=== PATIENT | male | born 1940 | race Caucasian/White ===

== ENCOUNTER 2020-02-03 18:17 | Emergency (ER) | payer MEDICARE, OTHER ==
[2020-02-03] MEDS ORDERED: Sodium Chloride 0.9% 10 ML Syringe FLUSH PRN (19:05)
--- NOTE | 2020-02-03 19:16 | EDM.PDOC ---
ED HPI GENERAL MEDICAL PROBLEM - General Chief Complaint: Neurological Problem Stated Complaint: DIZZY NO BALANCE Time Seen by Provider: 02/03/20 18:55 Source of Information: Reports: Patient, RN Notes Reviewed History Limitations: Reports: No Limitations - History of Present Illness INITIAL COMMENTS - FREE TEXT/NARRATIVE: Patient is an 79-year-old male who presents to the ED for the evaluation of his dizziness. Patient notes he has had dizziness, which he would characterize as lightheadedness for the past few days, but has noted it is gotten much worse. He has not had any nausea/vomiting/diarrhea, or any cough, chest pain or shortness of breath. He is complaining of balance issues at home. He notes that he has had issues like this once before roughly 5 or 6 weeks ago, and he was evaluated by his care provider Dr. Mallory had an MRI and a neurologist referral, and everything was okay. The neurologist thought maybe he should go see his hazardous waste management specialist again regarding his valve repair he had a few years ago. Patient states that this dizziness hit him very suddenly, and any movement at all seems to make this worse. He is not noted anything that really makes it better. Temperature at time of triage was 100.2 F, O2 sats are 95% on room air, pulse is 84 bpm, respiratory rate of 19, blood pressure is 136/105. He notes he does not take any regular medications other than [id number] meds and multivitamins. - Related Data Allergies Allergy/AdvReac Type Severity Reaction Status Date / Time No Known Allergies Allergy Verified 02/03/20 18:40 Home Meds: Home Meds Multivitamin 1 tab PO DAILY 02/03/20 [History] Mv-Mn/Iron/Folic Acid/Herb 190 [Vitamin D3 Complete Caplet] 1 cap PO DAILY 02/03/20 [History] Vit A/C/E AC/Znox/Cupric Oxide [Eye Vitamin-Minerals Tablet] 1 tab PO DAILY 02/03/20 [History] Zinc 50 mg PO DAILY 02/03/20 [History] Past Medical History HEENT History: Reports: Macular Degeneration Cardiovascular History: Reports: Other (See Below) (heart valve repair done at [facility]) Oncologic (Cancer) History: Reports: Malignant Melanoma - Infectious Disease History Infectious Disease History: Reports: Chicken Pox, Measles, Mumps - Past Surgical History Cardiovascular Surgical History: Reports: Other (See Below) (valve repair done at [facility]) Social & Family History - Family History Family Medical History: No Pertinent Family History - Tobacco Use Tobacco Use Status *Q: Former Tobacco User Used Tobacco, but Quit: Yes Month/Year Tobacco Last Used: 1969 - Caffeine Use Caffeine Use: Reports: Coffee - Recreational Drug Use Recreational Drug Use: No ED ROS GENERAL - Review of Systems Review Of Systems: Comprehensive ROS is negative, except as noted in HPI. ED EXAM, GENERAL - Physical Exam Exam: See Below Exam Limited By: No Limitations General Appearance: Alert, WD/WN, No Apparent Distress Eye Exam: Bilateral Eye: EOMI, Normal Inspection, PERRL Ears: Normal External Exam, Normal TMs Throat/Mouth: Normal Inspection, Normal Lips, Normal Teeth, Normal Gums, Normal Oropharynx, Normal Voice, No Airway Compromise Head: Atraumatic, Normocephalic Neck: Normal Inspection Respiratory/Chest: No Respiratory Distress, Lungs Clear, Normal Breath Sounds, No Accessory Muscle Use, Chest Non-Tender Cardiovascular: Normal Peripheral Pulses, Regular Rate, Rhythm, No Murmur GI/Abdominal: Normal Bowel Sounds, Soft, Non-Tender, No Distention, No Mass Extremities: Normal Inspection, Normal Capillary Refill Neurological: Alert, Oriented, Normal Cognition, No Motor/Sensory Deficits Psychiatric: Normal Affect, Normal Mood Skin Exam: Warm, Dry, Intact, Normal Color, No Rash #1 Interpretation EKG Date: 02/03/20 Time: 19:18 Rhythm: NSR Rate (Beats/Min): 73 [place]: Normal P-Wave: Present QRS: Normal ST-T: Normal QT: Normal Comparison: NA - No Prior EKG EKG Interpretation Comments: No obvious ischemia or acute ST changes noted, reviewed by myself and Dr. Johnson. He did appreciate some old Q waves, but again nothing acute. Course - Vital Signs Last Recorded V/S: Last Vital Signs Temp 101.2 F H 02/03/20 19:29 Pulse 84 02/03/20 18:36 Resp 19 02/03/20 18:36 BP 136/105 H 02/03/20 18:36 Pulse Ox 95 02/03/20 18:36 Orthostatic Blood Pressure [ 119/75 Standing] Orthostatic Blood Pressure [ 121/75 Supine] - Orders/Labs/Meds Orders: Active Orders 24 hr Category Date Time Status EKG Documentation Completion [RC] STAT Care 02/03/20 19:04 Active Orthostatic Vital Signs [RC] ASDIRECTED Care 02/03/20 19:11 Active Peripheral IV Care [RC] . DIRECTED Care 02/03/20 19:06 Active Chest 1V Frontal [CR] Stat Exams 02/03/20 19:02 Taken Ciprofloxacin [Ciloxan 0.3% Ophth Soln] Med 02/03/20 21:45 Ordered 1 ml EYEBOTH Q4H Sodium Chloride 0.9% [Saline Flush] Med 02/03/20 19:05 Active 10 ml FLUSH ASDIRECTED PRN Isolation [COMM] Routine Oth 02/03/20 19:04 Ordered Peripheral IV Insertion Adult [OM.PC] Routine Oth 02/03/20 19:06 Ordered Medication Orders Sodium Chloride (Saline Flush) 10 ml FLUSH ASDIRECTED PRN PRN Reason: Keep Vein Open Last Admin: 02/03/20 19:30 Dose: 10 ml Documented by: SEAN Labs: Laboratory Tests 02/03/20 02/03/20 02/03/20 Range/Units 19:20 19:20 19:20 WBC 10.23 H (4.23-9.07) K/mm3 RBC 4.61 L (4.63-6.08) M/mm3 Hgb 14.8 (13.7-17.5) gm/dl Hct 43.5 (40.1-51.0) % MCV 94.4 H (79.0-92.2) fl MCH 32.1 (25.7-32.2) pg MCHC 34.0 (32.2-35.5) g/dl RDW Std Deviation 45.1 H (35.1-43.9) fL Plt Count 207 (163-337) K/mm3 MPV 9.2 L (9.4-12.3) fl Neutrophils % (Manual) 83 H (40-60) % Band Neutrophils % 0 (0-10) % Lymphocytes % (Manual) 14 L (20-40) % Atypical Lymphs % 0 % Monocytes % (Manual) 2 (2-10) % Eosinophils % (Manual) 1 (0.8-7.0) % Basophils % (Manual) 0 L (0.2-1.2) Platelet Estimate Adequate Plt Morphology Comment Normal RBC Morph Comment Normal PT 11.1 (9.7-12.0) SECONDS INR 1.04 APTT 27.5 (21.7-31.4) SECONDS D-Dimer, Quantitative 0.70 H (0.19-0.50) mg/L Sodium (136-145) mEq/L Potassium (3.5-5.1) mEq/L Chloride (98-107) mEq/L Carbon Dioxide (21-32) mEq/L Anion Gap (5-15) BUN (7-18) mg/dL Creatinine (0.7-1.3) mg/dL Est Cr Clr Drug Dosing mL/min Estimated GFR (MDRD) (>60) mL/min BUN/Creatinine Ratio (14-18) Glucose (83-115) mg/dL Calcium (8.5-10.1) mg/dL Magnesium (1.8-2.4) mg/dl Ferritin (26-388) ng/ml Total Bilirubin (0.2-1.0) mg/dL AST (15-37) U/L ALT (16-63) U/L Alkaline Phosphatase (46-116) U/L Troponin I (0.00-0.056) ng/mL C-Reactive Protein 6.4 H* (<1.0) mg/dL NT-Pro-B Natriuret Pep (0-450) pg/mL Total Protein (6.4-8.2) g/dl Albumin (3.4-5.0) g/dl Globulin gm/dL Albumin/Globulin Ratio (1-2) Urine Color (Yellow) Urine Appearance (Clear) Urine pH (5.0-8.0) Ur Specific Spencer (1.005-1.030) Urine Protein (Negative) Urine Glucose (UA) (Negative) Urine Ketones (Negative) Urine Occult Blood (Negative) Urine Nitrite (Negative) Urine Bilirubin (Negative) Urine Urobilinogen (0.2-1.0) Ur Leukocyte Esterase (Negative) Urine RBC (0-5) /hpf Urine WBC (0-5) /hpf Ur Squamous Epith Cells (0-5) /hpf Urine Bacteria (FEW) /hpf Urine Mucus (FEW) /hpf Influenza Type A RNA (NEGATIVE) Influenza Type B RNA (NEGATIVE) Mycoplasma pneumon IgM (NEGATIVE) SARS-CoV-2 RNA (SHEELA) (NEGATIVE) 02/03/20 02/03/20 02/03/20 Range/Units 19:20 19:20 19:20 WBC (4.23-9.07) K/mm3 RBC (4.63-6.08) M/mm3 Hgb (13.7-17.5) gm/dl Hct (40.1-51.0) % MCV (79.0-92.2) fl MCH (25.7-32.2) pg MCHC (32.2-35.5) g/dl RDW Std Deviation (35.1-43.9) fL Plt Count (163-337) K/mm3 MPV (9.4-12.3) fl Neutrophils % (Manual) (40-60) % Band Neutrophils % (0-10) % Lymphocytes % (Manual) (20-40) % Atypical Lymphs % % Monocytes % (Manual) (2-10) % Eosinophils % (Manual) (0.8-7.0) % Basophils % (Manual) (0.2-1.2) Platelet Estimate Plt Morphology Comment RBC Morph Comment PT (9.7-12.0) SECONDS INR APTT (21.7-31.4) SECONDS D-Dimer, Quantitative (0.19-0.50) mg/L Sodium 140 (136-145) mEq/L Potassium 4.1 (3.5-5.1) mEq/L Chloride 102 (98-107) mEq/L Carbon Dioxide 27 (21-32) mEq/L Anion Gap 15.1 H (5-15) BUN 27 H (7-18) mg/dL Creatinine 0.9 (0.7-1.3) mg/dL Est Cr Clr Drug Dosing 67.59 mL/min Estimated GFR (MDRD) > 60 (>60) mL/min BUN/Creatinine Ratio 30.0 H (14-18) Glucose 96 (83-115) mg/dL Calcium 8.8 (8.5-10.1) mg/dL Magnesium 2.0 (1.8-2.4) mg/dl Ferritin 442 H (26-388) ng/ml Total Bilirubin 0.6 (0.2-1.0) mg/dL AST 16 (15-37) U/L ALT 29 (16-63) U/L Alkaline Phosphatase 65 (46-116) U/L Troponin I < 0.017 (0.00-0.056) ng/mL C-Reactive Protein (<1.0) mg/dL NT-Pro-B Natriuret Pep 265 (0-450) pg/mL Total Protein 7.5 (6.4-8.2) g/dl Albumin 3.5 (3.4-5.0) g/dl Globulin 4.0 gm/dL Albumin/Globulin Ratio 0.9 L (1-2) Urine Color (Yellow) Urine Appearance (Clear) Urine pH (5.0-8.0) Ur Specific Spencer (1.005-1.030) Urine Protein (Negative) Urine Glucose (UA) (Negative) Urine Ketones (Negative) Urine Occult Blood (Negative) Urine Nitrite (Negative) Urine Bilirubin (Negative) Urine Urobilinogen (0.2-1.0) Ur Leukocyte Esterase (Negative) Urine RBC (0-5) /hpf Urine WBC (0-5) /hpf Ur Squamous Epith Cells (0-5) /hpf Urine Bacteria (FEW) /hpf Urine Mucus (FEW) /hpf Influenza Type A RNA (NEGATIVE) Influenza Type B RNA (NEGATIVE) Mycoplasma pneumon IgM (NEGATIVE) SARS-CoV-2 RNA (SHEELA) (NEGATIVE) 02/03/20 02/03/20 02/03/20 Range/Units 19:20 19:20 19:52 WBC (4.23-9.07) K/mm3 RBC (4.63-6.08) M/mm3 Hgb (13.7-17.5) gm/dl Hct (40.1-51.0) % MCV (79.0-92.2) fl MCH (25.7-32.2) pg MCHC (32.2-35.5) g/dl RDW Std Deviation (35.1-43.9) fL Plt Count (163-337) K/mm3 MPV (9.4-12.3) fl Neutrophils % (Manual) (40-60) % Band Neutrophils % (0-10) % Lymphocytes % (Manual) (20-40) % Atypical Lymphs % % Monocytes % (Manual) (2-10) % Eosinophils % (Manual) (0.8-7.0) % Basophils % (Manual) (0.2-1.2) Platelet Estimate Plt Morphology Comment RBC Morph Comment PT (9.7-12.0) SECONDS INR APTT (21.7-31.4) SECONDS D-Dimer, Quantitative (0.19-0.50) mg/L Sodium (136-145) mEq/L Potassium (3.5-5.1) mEq/L Chloride (98-107) mEq/L Carbon Dioxide (21-32) mEq/L Anion Gap (5-15) BUN (7-18) mg/dL Creatinine (0.7-1.3) mg/dL Est Cr Clr Drug Dosing mL/min Estimated GFR (MDRD) (>60) mL/min BUN/Creatinine Ratio (14-18) Glucose (83-115) mg/dL Calcium (8.5-10.1) mg/dL Magnesium (1.8-2.4) mg/dl Ferritin (26-388) ng/ml Total Bilirubin (0.2-1.0) mg/dL AST (15-37) U/L ALT (16-63) U/L Alkaline Phosphatase (46-116) U/L Troponin I (0.00-0.056) ng/mL C-Reactive Protein (<1.0) mg/dL NT-Pro-B Natriuret Pep (0-450) pg/mL Total Protein (6.4-8.2) g/dl Albumin (3.4-5.0) g/dl Globulin gm/dL Albumin/Globulin Ratio (1-2) Urine Color Dark yellow (Yellow) Urine Appearance Clear (Clear) Urine pH 6.5 (5.0-8.0) Ur Specific Spencer > or = 1.030 (1.005-1.030) Urine Protein 1+ H (Negative) Urine Glucose (UA) Negative (Negative) Urine Ketones Negative (Negative) Urine Occult Blood Negative (Negative) Urine Nitrite Negative (Negative) Urine Bilirubin Negative (Negative) Urine Urobilinogen 0.2 (0.2-1.0) Ur Leukocyte Esterase Negative (Negative) Urine RBC 0-5 (0-5) /hpf Urine WBC 0-5 (0-5) /hpf Ur Squamous Epith Cells 0-5 (0-5) /hpf Urine Bacteria Rare (FEW) /hpf Urine Mucus Few (FEW) /hpf Influenza Type A RNA Negative (NEGATIVE) Influenza Type B RNA Negative (NEGATIVE) Mycoplasma pneumon IgM Negative (NEGATIVE) SARS-CoV-2 RNA (SHEELA) Negative (NEGATIVE) Meds: Medications Generic Name Dose Route Start Last Admin Trade Name Freq PRN Reason Stop Dose Admin Sodium Chloride 10 ml 02/03/20 19:05 02/03/20 19:30 Saline Flush FLUSH 10 ml ASDIRECTED PRN Administration Keep Vein Open Discontinued Medications Generic Name Dose Route Start Last Admin Trade Name Freq PRN Reason Stop Dose Admin Acetaminophen 650 mg 02/03/20 19:24 02/03/20 19:29 Tylenol PO 02/03/20 19:25 650 mg NOW ONE Administration - Re-Assessments/Exams Free Text/Narrative Re-Assessment/Exam: 02/03/20 19:15 Patient presents to the ED for evaluation of his lightheadedness or dizziness. He is febrile at time of triage, does feel warm to the touch. We will get orthostatic VS, get an IV placed, obtain labs, chest x-ray, EKG, COVID-19 swab and influenza swab for evaluation along with a urinalysis. 02/03/20 20:21 The patient's laboratory evaluation has started to come back, CBC is impressive for mildly elevated white count at 10.23, the differential still pending at this time. D-dimer elevated at 0.70, ferritin mildly elevated elevated at 442, troponin is undetectably low, CRP is elevated at 6.4, urine is negative for any infection. Chest x-ray was read as no pneumonia, and linear atelectasis or scarring of the left lower lung. I did look at these x-rays, it does appear to have some fluid within a fissure on the right lung field, but there was an area concerning for possible patchy infiltrates near the right base. There is gas in his GI tract right below the hemidiaphragm that is elevated as well. 02/03/20 20:43 The patient's in-house Covid test, influenza swab are both negative. However his current symptoms would suggest an ongoing COVID-19 infection. He may just be having dizziness as his presenting symptom. We will get the patient home with general conservative recommendations, have him be a bit more cautious around the house, i.e. as in getting up and moving around, so that he does not get too lightheaded or dizzy and have a fall. We will have him go through the drive-through testing on Tuesday for a retest for COVID-19. 02/03/20 21:37 I did go and and discussed this with the patient, and he did state he has been having some issues with his ears being tender. Ear exam does demonstrate quite a bit of cerumen in both canals. We will have nursing staff clean his ears out before he is discharged home as this could be contributing to some of the dizziness issues. Departure - Departure Time of Disposition: 20:44 Disposition: Home, Self-Care 01 Condition: Good Clinical Impression: COVID-19 determined by clinical diagnostic criteria, Positional lightheadedness Bilateral external ear infections Qualifiers: Otitis externa type: unspecified type Chronicity: acute Qualified Code(s): H60.503 - Unspecified acute noninfective otitis externa, bilateral - Discharge Information *PRESCRIPTION DRUG MONITORING PROGRAM REVIEWED*: No *COPY OF PRESCRIPTION DRUG MONITORING REPORT IN PATIENT ERIKA: No Instructions: Dizziness, [id number], Otitis Externa, [id number] Referrals: Nehemiah Gibbons MD [Primary Care Provider] - Forms: ED Department Discharge Additional Instructions: You were seen in the ER today for your dizziness. Your chest x-ray showed no signs of pneumonia at this time. Your oxygen levels were great at 96% on room air. You did have a fever when you checked into the ER. Your in-house test did come back negative, but laboratory evaluation and symptoms would suggest that you have an ongoing COVID-19 infection. We ask that you self-quarantine and limit your exposure to others as much as possible. We do recommend that you go through the community drive-through testing, on Tuesday, and get another swab taken for retest for COVID-19. Testing site is located at [address] [place] [address] from 8am-11am on TuesdayFeb 04. Please try to increase your oral fluid intake, and eat multiple small meals throughout the day, to keep yourself healthy. You need to keep yourself nourished in order to fight off this disease. You can try a liquid diet like gatorade/powerade as well to get your electrolytes. You may take 500 mg Tylenol every hours 6 hours for pain/fever relief. Do not exceed 4000 mg Tylenol in a 24-hour time span. However, running a fever is your body's natural response to illness, and it allows the body to develop antibodies to disease, we are recommending trying to limit the use of Tylenol as much as possible to allow your body's natural immune response. Recommend you obtain a pulse oximeter and monitor your oxygen levels at home, you should place the monitor on your finger, and sit in a calm, quiet position for a few minutes and then record the number that is on the screen. If this consistently below 90% on room air without movement, this would be cause for concern to come back to the hospital for further management of your COVID-19 disease. Regarding your dizziness, please take it a little more cautious when you get up and or moving around, so that you do not become increasingly dizzy and fall. I would recommend you follow-up with your hazardous waste management specialist like your neurologist wanted you to, in regards to your heart valve repair, to make sure that this is indeed functioning well, and could not be an underlying cause of your issues. You were given a bottle of antibiotic eardrops, please use 4 drops to each ear BID x 7 days or until gone. Sepsis Event Note (ED) - Evaluation Sepsis Screening Result: No Definite Risk - Focused Exam Vital Signs: Vital Signs Temp Temp Pulse Resp BP Pulse Ox 02/03/20 19:29 101.2 F H 02/03/20 18:36 100.2 F 84 19 136/105 H 95 - My Orders Last 24 Hours: My Active Orders 02/03/20 19:02 Chest 1V Frontal [CR] Stat 02/03/20 19:04 EKG Documentation Completion [RC] STAT Isolation [COMM] Routine 02/03/20 19:05 Sodium Chloride 0.9% [Saline Flush] 10 ml FLUSH ASDIRECTED PRN 02/03/20 19:06 Peripheral IV Care [RC] . DIRECTED Peripheral IV Insertion Adult [OM.PC] Routine 02/03/20 19:11 Orthostatic Vital Signs [RC] ASDIRECTED 02/03/20 21:45 Ciprofloxacin [Ciloxan 0.3% Ophth Soln] 1 ml EYEBOTH Q4H - Assessment/Plan Last 24 Hours: My Active Orders 02/03/20 19:02 Chest 1V Frontal [CR] Stat 02/03/20 19:04 EKG Documentation Completion [RC] STAT Isolation [COMM] Routine 02/03/20 19:05 Sodium Chloride 0.9% [Saline Flush] 10 ml FLUSH ASDIRECTED PRN 02/03/20 19:06 Peripheral IV Care [RC] . DIRECTED Peripheral IV Insertion Adult [OM.PC] Routine 02/03/20 19:11 Orthostatic Vital Signs [RC] ASDIRECTED 02/03/20 21:45 Ciprofloxacin [Ciloxan 0.3% Ophth Soln] 1 ml EYEBOTH Q4H
[2020-02-03] MEDS ORDERED: Acetaminophen 325 MG Tab PO ONE (19:24)
[2020-02-03 20:22] LABS: CORONAVIRUS COVID-19 NAA NEGATIVE (NEGATIVE)
[2020-02-03] MEDS ORDERED: Ciprofloxacin 0.3% Ophth Soln 5 ML Bottle EYEBOTH SCH (21:45)
--- NOTE | 2020-02-04 13:26 | CR ---
PROCEDURE INFORMATION: Exam: XR Chest, 1 View Exam date and time: 02/03/2020 7:12 PM Age: 79 years old Clinical indication: Cough and fever; Patient HX: Fever, fatigue, cough and lightheadedness onset few days ago and worsening, would not remove chain TECHNIQUE: Imaging protocol: XR of the chest Views: 1 view. COMPARISON: No relevant prior studies available. FINDINGS: Lungs: There are no suspicious pulmonary nodules or areas of lung consolidation. Linear atelectasis or scarring left lower lung. Pleural space: Costophrenic angles are sharp. No pneumothorax. Heart/Mediastinum: Unremarkable. No cardiomegaly. Diaphragm: There is elevation of right hemidiaphragm. Bones/joints: Age appropriate. Gastrointestinal tract: Gas within large intestine beneath right hemidiaphragm. New IMPRESSION: 1. No pneumonia. 2. Linear atelectasis or scarring left lower lung. Thank you for allowing us to participate in the care of your patient. Dictated and Authenticated by: Tevin Weinstein MD 02/03/2020 9:08 PM Central Time ([place] & [place]) TOM
== END 2020-02-03 22:15 | disposition home or self-care (01) ==
LOC: JD.ED 18:17
DX: U07.1 COVID-19 (principal); H60.393 Other infective otitis externa, bilateral; R42 Dizziness and giddiness; Z87.891 Personal history of nicotine dependence
CPT/HCPCS: 0240U; 36415; 71045; 80053; 81001; 82728; 83735; 83880; 84484; 85007; 85027; 85379; 85610; 85730; 86140; 86738; 93005; 99284; A9270; 93010; 99283

== ENCOUNTER 2020-12-27 09:50 | Emergency (ER) | payer MEDICARE, OTHER ==
[2020-12-27] MEDS ORDERED: Sodium Chloride 0.9% 10 ML Syringe FLUSH SCH (11:15)
[2020-12-27] MEDS ORDERED: diphenhydrAMINE 50 MG/ML SDV IVPUSH PRN (11:15)
[2020-12-27] MEDS ORDERED: Sodium Chloride 0.9% 10 ML Syringe FLUSH PRN (11:15)
[2020-12-27] MEDS ORDERED: Famotidine 20 MG/2 ML SDV IVPUSH PRN (11:15)
[2020-12-27] MEDS ORDERED: EPINEPHrine 1 MG/ML SDV IM PRN (11:15)
[2020-12-27] MEDS ORDERED: methylPREDNISolone Sodium Succinate 125 MG/2 ML SDV IVPUSH PRN (11:15)
--- NOTE | 2020-12-27 11:20 | EDM.PDOC ---
ED HPI GENERAL MEDICAL PROBLEM - General Chief Complaint: Respiratory Problem Stated Complaint: COVID+/WORSENING SYMPTOMS Time Seen by Provider: 12/27/20 11:06 Source of Information: Reports: Patient, RN Notes Reviewed History Limitations: Reports: No Limitations - History of Present Illness INITIAL COMMENTS - FREE TEXT/NARRATIVE: Patient is an 80-year-old male who presents to the ER for evaluation of his COVID-19. Patient states he began feeling ill yesterday at around noon, with generalized lethargy, weakness, slight fever/chills, cough and very mild shortness of breath. Patient states that he went to get Covid tested at that time, and that he was called today that it did return positive. This gentleman did get his Moderna COVID vaccine, he thinks he finished it around June or May with both shots. Primary care provider is Dr. Mallory. Patient's vital signs are stable at this time, O2 sats have been 93 to 94% on time of triage and while being evaluated in the ER. - Related Data Allergies Allergy/AdvReac Type Severity Reaction Status Date / Time No Known Allergies Allergy Verified 12/27/20 10:22 Home Meds: Home Meds Multivitamin 1 tab PO DAILY 02/03/20 [History] Mv-Mn/Iron/Folic Acid/Herb 190 [Vitamin D3 Complete Caplet] 1 cap PO DAILY 02/03/20 [History] Vit A/C/E AC/Znox/Cupric Oxide [Eye Vitamin-Minerals Tablet] 1 tab PO DAILY 02/03/20 [History] Zinc 50 mg PO DAILY 02/03/20 [History] Rosuvastatin [Crestor] 5 mg PO DAILY 12/27/20 [History] Past Medical History HEENT History: Reports: Macular Degeneration Cardiovascular History: Reports: High Cholesterol Oncologic (Cancer) History: Reports: Malignant Melanoma - Infectious Disease History Infectious Disease History: Reports: Chicken Pox, Measles, Mumps, Novel Coronavirus (12/27/20) - Past Surgical History Cardiovascular Surgical History: Reports: Other (See Below) Other Cardiovascular Surgeries/Procedures: valve repair Social & Family History - Family History Family Medical History: No Pertinent Family History - Tobacco Use Tobacco Use Status *Q: Never Tobacco User - Caffeine Use Caffeine Use: Reports: Coffee - Recreational Drug Use Recreational Drug Use: No ED ROS GENERAL - Review of Systems Review Of Systems: Comprehensive ROS is negative, except as noted in HPI. ED EXAM, GENERAL - Physical Exam Exam: See Below Exam Limited By: No Limitations General Appearance: Alert, WD/WN, No Apparent Distress Respiratory/Chest: No Respiratory Distress, Lungs Clear, Normal Breath Sounds, No Accessory Muscle Use, Chest Non-Tender Cardiovascular: Normal Peripheral Pulses, Regular Rate, Rhythm, No Edema Extremities: Normal Inspection, Normal Capillary Refill Neurological: Alert, Oriented, Normal Cognition, No Motor/Sensory Deficits Psychiatric: Normal Affect, Normal Mood Skin Exam: Warm, Dry, Intact, Normal Color, No Rash Course - Vital Signs Last Recorded V/S: Last Vital Signs Temp 98.4 F 12/27/20 10:18 Pulse 61 12/27/20 12:19 Resp 23 H 12/27/20 12:19 BP 127/67 12/27/20 12:19 Pulse Ox 94 L 12/27/20 12:19 - Orders/Labs/Meds Orders: Active Orders 24 hr Category Date Time Status Peripheral IV Insertion Adult [OM.PC] Routine Oth 12/27/20 11:15 Ordered Labs: Laboratory Tests 12/27/20 12/27/20 12/27/20 Range/Units 10:30 10:30 10:30 WBC 6.81 (4.23-9.07) K/mm3 RBC 4.56 L (4.63-6.08) M/mm3 Hgb 14.5 (13.7-17.5) gm/dl Hct 43.7 (40.1-51.0) % MCV 95.8 H (79.0-92.2) fl MCH 31.8 (25.7-32.2) pg MCHC 33.2 (32.2-35.5) g/dl RDW Std Deviation 45.0 H (35.1-43.9) fL Plt Count 207 (163-337) K/mm3 MPV 9.5 (9.4-12.3) fl Neut % (Auto) 75.5 H (34.0-67.9) % Lymph % (Auto) 13.4 L (21.8-53.1) % Butler % (Auto) 10.0 (5.3-12.2) % Eos % (Auto) 0.7 L (0.8-7.0) Baso % (Auto) 0.3 (0.1-1.2) % Neut # (Auto) 5.14 (1.78-5.38) K/mm3 Lymph # (Auto) 0.91 L (1.32-3.57) K/mm3 Butler # (Auto) 0.68 (0.30-0.82) K/mm3 Eos # (Auto) 0.05 (0.04-0.54) K/mm3 Baso # (Auto) 0.02 (0.01-0.08) K/mm3 D-Dimer, Quantitative 0.63 H (0.19-0.50) mg/L Sodium (136-145) mEq/L Potassium (3.5-5.1) mEq/L Chloride (98-107) mEq/L Carbon Dioxide (21-32) mEq/L Anion Gap (5-15) BUN (7-18) mg/dL Creatinine (0.7-1.3) mg/dL Est Cr Clr Drug Dosing mL/min Estimated GFR (MDRD) (>60) mL/min BUN/Creatinine Ratio (14-18) Glucose (70-99) mg/dL Calcium (8.5-10.1) mg/dL Magnesium (1.8-2.4) mg/dL Total Bilirubin (0.2-1.0) mg/dL AST (15-37) U/L ALT (16-63) U/L Alkaline Phosphatase (46-116) U/L C-Reactive Protein 4.3 H* (<1.0) mg/dL Total Protein (6.4-8.2) g/dl Albumin (3.4-5.0) g/dl Globulin gm/dL Albumin/Globulin Ratio (1-2) 12/27/ Range/Units 10:30 WBC (4.23-9.07) K/mm3 RBC (4.63-6.08) M/mm3 Hgb (13.7-17.5) gm/dl Hct (40.1-51.0) % MCV (79.0-92.2) fl MCH (25.7-32.2) pg MCHC (32.2-35.5) g/dl RDW Std Deviation (35.1-43.9) fL Plt Count (163-337) K/mm3 MPV (9.4-12.3) fl Neut % (Auto) (34.0-67.9) % Lymph % (Auto) (21.8-53.1) % Butler % (Auto) (5.3-12.2) % Eos % (Auto) (0.8-7.0) Baso % (Auto) (0.1-1.2) % Neut # (Auto) (1.78-5.38) K/mm3 Lymph # (Auto) (1.32-3.57) K/mm3 Butler # (Auto) (0.30-0.82) K/mm3 Eos # (Auto) (0.04-0.54) K/mm3 Baso # (Auto) (0.01-0.08) K/mm3 D-Dimer, Quantitative (0.19-0.50) mg/L Sodium 138 (136-145) mEq/L Potassium 4.2 (3.5-5.1) mEq/L Chloride 104 (98-107) mEq/L Carbon Dioxide 26 (21-32) mEq/L Anion Gap 12.2 (5-15) BUN 13 (7-18) mg/dL Creatinine 0.9 (0.7-1.3) mg/dL Est Cr Clr Drug Dosing 66.47 mL/min Estimated GFR (MDRD) > 60 (>60) mL/min BUN/Creatinine Ratio 14.4 (14-18) Glucose 97 (70-99) mg/dL Calcium 8.7 (8.5-10.1) mg/dL Magnesium 2.0 (1.8-2.4) mg/dL Total Bilirubin 0.9 (0.2-1.0) mg/dL AST 14 L (15-37) U/L ALT 21 (16-63) U/L Alkaline Phosphatase 61 (46-116) U/L C-Reactive Protein (<1.0) mg/dL Total Protein 7.3 (6.4-8.2) g/dl Albumin 3.4 (3.4-5.0) g/dl Globulin 3.9 gm/dL Albumin/Globulin Ratio 0.9 L (1-2) Meds: Medications Discontinued Medications Generic Name Dose Route Start Last Admin Trade Name Freq PRN Reason Stop Dose Admin Diphenhydramine HCl 50 mg 12/27/20 11:15 Diphenhydramine 50 Mg/Ml Sdv IVPUSH ASDIRECTED PRN hypersensitivity reaction Epinephrine HCl 0.3 mg 12/27/20 11:15 Epinephrine 1 Mg/Ml Sdv IM ASDIRECTED PRN hypersensitivity reaction Famotidine 20 mg 12/27/20 11:15 Famotidine 20 Mg/2 Ml Sdv IVPUSH ASDIRECTED PRN hypersensitivity reaction Bamlanivimab 700 mg/ 160 mls @ 310 mls/hr 12/27/20 11:45 12/27/20 12:11 Etesevimab 1,400 mg/ Sodium IV 12/27/20 12:15 310 mls/hr Chloride ONETIME ONE Administration Methylprednisolone Sodium Succinate 125 mg 12/27/20 11:15 Methylprednisolone Sodium Succinate 125 Mg/2 Ml Sdv IVPUSH ASDIRECTED PRN hypersensitivity reaction Sodium Chloride 30 ml 12/27/20 11:15 Sodium Chloride 0.9% 10 Ml Syringe FLUSH ASDIRECTED ALFREDITO Sodium Chloride 10 ml 12/27/20 11:15 Sodium Chloride 0.9% 10 Ml Syringe FLUSH ASDIRECTED PRN Keep Vein Open - Re-Assessments/Exams Free Text/Narrative Re-Assessment/Exam: 12/27/20 11:19 Patient presents to the ER for the evaluation of his COVID-19. Patient does qualify for IV monoclonal antibodies due to age and body habitus. I spoke with the patient to provide information about monoclonal antibody treatment. I offered them the "Patient and caregiver EUA monoclonal antibody fact sheet" to read and review. I stated that the drug has been approved by an emergency use authorization (EUA) process and has not been fully FDA reviewed or approved. The patient meets the EUA requirements. I discussed there are other potential treatment options that are currently not FDA approved to treat COVID-19. I did offer an opportunity to ask questions and all questions were answered. The lamar saucedo voiced understanding and agreed to proceed with the treatment. We will also get basic labs, and a chest x-ray for further evaluation. 12/27/20 12:32 Laboratory evaluation does demonstrate a mildly elevated D-dimer at 0.63, and a CRP elevated at 4.3. All other labs are fairly unremarkable. Patient is receiving his monoclonal antibodies at this time, he is due to be done with the infusion at around 12:45. We will monitor him for 1 hour after this and then get him discharged home with general recommendations. Departure - Departure Time of Disposition: 13:37 Disposition: Home, Self-Care 01 Condition: Good Clinical Impression: COVID-19 - Discharge Information *PRESCRIPTION DRUG MONITORING PROGRAM REVIEWED*: No *COPY OF PRESCRIPTION DRUG MONITORING REPORT IN PATIENT ERIKA: No Instructions: 10 Things You Can Do to Manage Your COVID-19 Symptoms at Home - [facility] (09/19/2020) Referrals: Nehemiah Gibbons MD [Primary Care Provider] - Forms: ED Department Discharge Additional Instructions: You were seen in the ER today for ongoing and/or worsening respiratory symptoms. Your chest x-ray showed no signs of pneumonia at this time. Your oxygen levels were great at 93-94% on room air. You were given IV monoclonal antibody therapy at today's visit, this medication is thought to work by making you a little less sick, and helps to decrease the length of time that you are sick. Please try to increase your oral fluid intake, and eat multiple small meals throughout the day, to keep yourself healthy. You need to keep yourself nourished in order to fight off this disease. You can try a liquid diet like gatorade/powerade as well to get your electrolytes. You may take 500 mg Tylenol every hours 6 hours for pain/fever relief. Do not exceed 4000 mg Tylenol in a 24-hour time span. However, running a fever is your body's natural response to illness, and it allows the body to develop antibodies to disease, we are recommending trying to limit the use of Tylenol as much as possible to allow your body's natural immune response. Recommend you obtain a pulse oximeter and monitor your oxygen levels at home, you should place the monitor on your finger, and sit in a calm, quiet position for a few minutes and then record the number that is on the screen. If this consistently below 90% on room air without movement, this would be cause for concern to come back to the hospital for further management of your COVID-19 disease. Please follow all guidance set forth from [facility], regarding isolation purposes for your disease process. General isolation times are 10 days from when you started being symptomatic. Sepsis Event Note (ED) - Evaluation Sepsis Screening Result: No Definite Risk - Focused Exam Vital Signs: Vital Signs Temp Pulse Resp BP Pulse Ox 12/27/20 12:19 61 23 H 127/67 94 L 10/23/21 10:18 98.4 F 69 17 133/76 96 - My Orders Last 24 Hours: My Active Orders 12/27/20 11:15 Peripheral IV Insertion Adult [OM.PC] Routine - Assessment/Plan Last 24 Hours: My Active Orders 12/27/20 11:15 Peripheral IV Insertion Adult [OM.PC] Routine
[2020-12-27] MEDS ORDERED: Bamlanivimab 700 MG, ETESEVIMAB 1,400 MG in Sodium Chloride 0.9% 100 ML IV ONE (11:45)
--- NOTE | 2020-12-27 17:46 | CR ---
Chest: Portable view of the chest was obtained. Comparison: No prior chest imaging is available. Slight elevation of the right hemidiaphragm is seen which is likely incidental. Mild linear densities are seen within both lung bases most likely representing areas of atelectasis. Lungs otherwise are clear with no acute parenchymal change. Heart size is normal. Tortuous thoracic aorta is seen. Bony structure shows nothing acute. Impression: 1. Elevated right hemidiaphragm which is likely chronic. 2. Linear areas of increased density within both lung bases most likely representing atelectasis. 3. Nothing acute is otherwise seen. Diagnostic code #2
== END 2020-12-27 14:12 | disposition home or self-care (01) ==
LOC: JD.ED 09:50
DX: U07.1 COVID-19 (principal); E78.00 Pure hypercholesterolemia, unspecified; Z79.899 Other long term (current) drug therapy
CPT/HCPCS: 36415; 71045; 80053; 83735; 85025; 85379; 86140; 99284; M0245; Q0245

== ENCOUNTER 2024-08-25 12:32 | Emergency (ER) | payer MEDICARE, OTHER ==
[2024-08-25 13:09] LABS: BASOPHILS ABSOLUTE AUTO 0.1 K/mm3 (0.0-0.2); BASOPHILS PERCENT AUTO 0.9 % (0.0-1.0); EOSINOPHILS ABSOLUTE AUTO 0.2 K/mm3 (0.0-0.4); EOSINOPHILS PERCENT AUTO 3.5 % (0.0-6.0); HEMATOCRIT 45.5 % (42.0-52.0); HEMOGLOBIN 15.4 gm/dl (14.0-18.0); IMMATURE GRAN ABSOLUTE AUTO 0.01 K/mm3 (0.00-0.05); IMMATURE GRAN PERCENT AUTO 0.2 % (0.0-0.4); LYMPHOCYTES ABSOLUTE AUTO 1.7 K/mm3 (1.0-4.8); LYMPHOCYTES PERCENT AUTO 31.7 % (24.0-44.0); MEAN CORPUSCULAR HEMOGLOBIN 31.8 pg (28.0-32.0); MEAN CORPUSCULAR HGB CONC 33.8 g/dl (32.0-36.0); MEAN PLATELET VOLUME 9.5 fl (9.4-12.4); MONOCYTES ABSOLUTE AUTO 0.5 K/mm3 (0.0-0.8); MONOCYTES PERCENT AUTO 8.2 % (0.0-8.0); NEUTROPHILS ABSOLUTE AUTO 3.1 K/mm3 (1.8-7.7); NEUTROPHILS PERCENT AUTO 55.5 % (41.0-71.0); PLATELET COUNT,PLT 218 K/mm3 (150-400); RED BLOOD CELL COUNT 4.84 M/mm3 (4.52-5.90); WHITE BLOOD CELL COUNT,WBC 5.49 K/mm3 (3.9-11.3)
[2024-08-25 13:20] LABS: ALBUMIN 3.7 g/dl (3.4-5.0); ANION GAP 13.3 (5-15); BUN/CREATININE RATIO 41.3 (14-18); CALCIUM 8.9 mg/dL (8.5-10.1); CREATININE 0.8 mg/dL (0.7-1.3); EST CRCL DRUG DOSING (CG) 67.51 mL/min; POTASSIUM,K 4.3 mEq/L (3.5-5.1); PROTEIN TOTAL,TP 7.6 g/dl (6.4-8.2)
== END 2024-08-25 15:50 | disposition home or self-care (01) ==
LOC: JD.ED 12:32
DX: R07.89 Other chest pain (principal); E78.00 Pure hypercholesterolemia, unspecified; Z79.899 Other long term (current) drug therapy; Z79.01 Long term (current) use of anticoagulants; Z86.16 Personal history of COVID-19; Z87.891 Personal history of nicotine dependence
CPT/HCPCS: 36415; 71046; 71046-26; 80053; 84484; 85025; 93005; 99285